=== PATIENT | male | born 2000 | race Caucasian/White ===

== ENCOUNTER 2022-08-09 19:35 | Emergency (ER) | payer OTHER ==
[2022-08-09] MEDS ORDERED: Boostrix 0.5 ML (Tdap) VIAL (>/=7 yrs of age) ONE (19:50)
[2022-08-09] MEDS ORDERED: Fentanyl 100 MCG/2 ML VIAL ONE (19:50)
== END 2022-08-09 20:34 | disposition home or self-care (01) ==
LOC: CSHERS 19:35
DX: S71.112A Laceration without foreign body, left thigh, initial encounter (principal); W26.8XXA Contact with other sharp object(s), not elsewhere classified, initial encounter
CPT/HCPCS: 12002; 90471; 90715; J3010